=== PATIENT | female | born 1990 | race Caucasian/White ===

== ENCOUNTER 2017-02-07 10:29 | Inpatient (IN) | payer MEDICAID ==
[~2017-02-07] VITALS: Ht 167.6 cm; Wt 105.0 kg
[2017-02-07 10:37] VITALS: BP 135/80; PULSE 87; RESP 19; Ht 167.6 cm; Wt 105.0 kg
[2017-02-07] MEDS ORDERED: PREN1TAB79 PO (10:39)
--- NOTE | 2017-02-07 11:36 | TRIAGE ---
OB Triage Datetime Report Generated by CPN: 02/07/2017 11:35 Datetime: 02/07/2017 11:07 Maternal Assessment Level of Consciousness: Fully Conscious DTR's/Clonus: DTRs 1+ Headache: Denies Blurred Vision: No Respiratory Effort: Unlabored Breath Sounds, Left: Clear and Equal Breath Sounds, Right: Clear and Equal Nausea/Vomiting: Denies RUQ Epigastric Pain: Denies Facial Edema: None Labor Evaluation Frequency: X3 Monitor Mode: External Duration (sec)2399: 60-90 Quality: Mild Pattern: Normal: <= 5 Contractions in 10 Minutes Resting Tone [place]: Relaxed Heart Rate FHR Baseline Rate: 145 Monitor Mode: External US Variability: Moderate 6-25 bpm Accelerations: 15X15 Decelerations: None Category: Category I Vaginal Exam Membrane Status: Intact Datetime: 02/07/2017 10:36 Assessment Type: Triage Maternal Assessment Level of Consciousness: Fully Conscious DTR's/Clonus: DTRs 2+; No Clonus Headache: Denies Blurred Vision: No Respiratory Effort: Unlabored; Regular Rhythm; Equal Expansion Breath Sounds, Left: Clear and Equal Breath Sounds, Right: Clear and Equal Nausea/Vomiting: Denies RUQ Epigastric Pain: Denies Lower Extremities Edema: None Degree: None Upper Extremities Edema: None Degree: None Facial Edema: None Fall Risk Assessment History of Falling: (0) No Secondary Diagnosis: (0) No Ambulatory Aid: (0) Bedrest/Nurse Assist IV Therapy: (0) No Gait: (0) Normal/Bedrest/Immobile Mental Status: (0) Oriented to Own Ability Fall Score: 0 Fall Risk Score Definition: No Risk: No action required Datetime: 02/07/2017 10:34 Time of Arrival: 02/07/2017 11:11 EGA: 40.3 Arrived By: Ambulatory Datetime: 02/07/2017 10:25 Time of Arrival: 02/07/2017 10:25 Arrived By: Ambulatory Arrived From: Home Chief Complaint: REPEAT C/O UC'S SINCE YESTERDAY AND DFM Movement: Present Contractions: Regular Time Contractions Began: 02/06/2017 08:00 Contractions: 10 MIN Rupture of Membranes: Denies Vaginal Discharge: Denies Recent Sexual Intercouse: Denies Abdominal Trauma: Not Applicable Additional Patient Complaints: NONE Time Provider Notified: 02/07/2017 11:10 Provider Notified: DESIREE Initial Plan: MARGOTH
[2017-02-07] MEDS ORDERED: CEFAZOLIN 2 GM/50 ML (PMX) 50 ML IV SCH (13:00)
[2017-02-07] MEDS ORDERED: CARBOPROST 250 MCG INJ IM PRN (13:00)
[2017-02-07] MEDS ORDERED: MISOPROSTOL 200 MCG TAB PR PRN (13:00)
[2017-02-07] MEDS ORDERED: OXYTOCIN 30 UNITS/LR 500 ML IV SCH (13:00)
[2017-02-07] MEDS ORDERED: METHYLERGONOVINE 0.2 MG INJ IM PRN (13:00)
[2017-02-07] MEDS ORDERED: OXYTOCIN 30 UNITS/LR 500 ML IV PRN (13:00)
[2017-02-07] MEDS: LACTATED RINGER'S 1,000 ML IV SCH ×2 (13:01→19:01)
[2017-02-07 13:14] LABS: ADD SCAN DIFF NO
[2017-02-07 13:23] LABS: BASOPHILS % 0.3 % (0.0-2.0); EOSINOPHILS # 0.1 10^3/ul (0.0-0.5); EOSINOPHILS % 0.7 % (0.0-7.0); HEMATOCRIT 33.4 % (37.0-47.0); HEMOGLOBIN 11.6 g/dl (12.0-16.0); LYMPHOCYTES # 1.3 10^3/ul (0.8-2.9); LYMPHOCYTES % 12.4 % (15.0-51.0); MEAN CORPUSCULAR HEMOGLOBIN 29.7 pg (29.0-33.0); MEAN CORPUSCULAR HGB CONC 34.7 g/dl (32.0-37.0); MEAN CORPUSCULAR VOLUME 85.4 fl (82.0-101.0); MEAN PLATELET VOLUME 10.8 fl (7.4-10.4); MONOCYTE # 0.7 10^3/ul (0.3-0.9); MONOCYTES % 6.5 % (0.0-11.0); NEUTROPHIL # 8.3 10^3/ul (1.6-7.5); NEUTROPHILS % 79.4 % (39.0-77.0); PLATELET COUNT 196 10^3/UL (140-415); RED BLOOD COUNT 3.91 10^6/ul (4.20-5.40); RED CELL DISTRIBUTION WIDTH 14.1 % (11.5-14.5); WHITE BLOOD COUNT 10.5 10^3/ul (4.8-10.8)
[2017-02-07 13:29] LABS: INR 0.91; PROTIME 12.2 Sec (12.2-14.2)
[2017-02-07 13:30] LABS: PARTIAL THROMBOPLASTIN TIME 25.5 Sec (25.0-35.0)
[2017-02-07] MEDS ORDERED: LACTATED RINGER'S 1,000 ML IV ONE ×2 (13:30→16:52)
[2017-02-07] MEDS ORDERED: CITRIC ACID/NA CITRATE 30 ML CUP PO ONE (17:00)
[2017-02-07] MEDS ORDERED: METOCLOPRAMIDE 10 MG INJ IV ONE (17:00)
[2017-02-07] MEDS ORDERED: FAMOTIDINE 20 MG INJ IV ONE (17:00)
--- NOTE | 2017-02-07 20:56 | HP ---
Date/Time of Note Date/Time of Note DATE: 02/07/17 TIME: 20:48 OB - History Hx of Present Free Text/Dictation 25 Year-old with SIUP at 40 3/7 weeks and previous C/S presents with a chief complaint of ucsd. She has been receiving her care with [facility]/Dr. Moss. She states good movement. She denies nausea, vomiting , shortness of breath, chest pain, headache, visual changes, vaginal bleeding or LOF. Chief Complaint: ucs : 2 Para: 1 Spontaneous : 0 Therapeutic : 0 Care: None Ultrasounds: Normal mid trimester US Obstetrical Complications: None Medical Complications: None Past Family/Social History * Past Medical, Surgical, Family and Obstetric Histories reviewed from chart. Blood Type: O+ Rubella: immune RPR/VDRL: Negative GBS Status: Negative HBsAG: Negative OB Admission Exam Vital Signs Vital Signs Vital Signs Date Time Temp Pulse Resp B/P Pulse Ox O2 Delivery O2 Flow Rate FiO2 02/07/17 10:37 98.0 87 19 135/80 99 Physical Exam HEENT: WNL Lungs: Clear Abdomen: WNL Extremities: Normal Cervical Dilatation: 1cm Effacement: 50% Membranes: Intact Accelerations: Accelerations Present Decelerations: No Decelerations Varibility: Moderate Contractions on Admission: 6-10 Minutes Apart Intensity: Moderate Last 72 hours Lab Results CBC & BMP 02/07/17 12:45 OB Assessment/Plan Other plan: 25 Year-old with SIUP at 40 3/7 weeks and previous C/S in early labor. - FHR: No sign of metabolic acidosis- Category I - Continious EFM, toco - CBC, blood type and screen - Analgesia options with R/B/A discussed in detail with patient - Please see the orders - O+/Rubella: Immune/GBS negative The risk of delivery including but not limited to bleeding, infection, injury to other organs (bowel, bladder, ureter, vessels, and nerves), injury to fetus, blood transfusion, blood transfusion related infection, risk of anesthesia, adhesion, needs for future , removal of uterus or any other indicated surgery was discussed with the patient and her family. She expressed understanding. All of her questions were answered. She will be signed the informed consent Admission, procedures, expectations, risks and possible complications have been discussed in detail with the patient. Risk of vaginal delivery including but not limited to bleeding, infection, cervical laceration, placental retention, injury to fetus, blood transfusion, blood transfusion related infection, risk of anesthesia, adhesion, cervical laceration, episiotomy/laceration, possible delivery with risk of bleeding, infection, injury to other organs ( bowel, bladder, ureter, vessels, nerves), injury to fetus, blood transfusion, blood transfusion related infection, risk of anesthesia, scar and hernia formation, needs for future , removal of uterus or any other indicated surgery discussed with the patient. She expressed understanding and repeat the risks. All of her questions were answered, all appropriate consents will be signed. PHYSICIAN'S VERIFICATION OF INFORMED CONSENT- The patient was counseled regarding the procedure, its indications, risks, potential complications and alternatives and any questions were answered. Consent was obtained. PLANNED PROCEDURE/TREATMENT: delivery with possible vacuum/forceps delivery PHYSICIAN'S VERIFICATION OF INFORMED CONSENT FOR BLOOD TRANSFUSION There is a reasonable possibility that blood transfusion will be necessary as a result of the patient's procedure. I have discussed the following with the patient/patient's legal field representative/health education: An explanation of the benefits and risks of the transfusion of blood or blood products and the possible alternatives. Al questions have been answered to the patient's/patients legal representatives satisfaction. INFORMED CONSENT: The patient has been informed of: - The nature of the proposed care, treatment, services, medications, interventions or procedures. - Potential benefits, risks or side effects, including potential problems related to recuperation. - The likelihood of achieving care treatment and service goals. - Reasonable alternatives to the proposed care, treatment and service. - The relevant risks, benefits and side effects related to alternatives, including the possible results of not receiving care, treatment and services. - When indicated, any limitations on the confidentiality of information learned from or about the patient. - If appropriate, the risks, benefits and alternatives of the drugs to be used for sedation/analgesia including moderate sedation. - If appropriate, patient has been provided information on the risks, benefits and alternatives to the transfusion of blood and/or blood products. - If appropriate, patient has been provided information regarding the [employer] [place] Blood Act. MOIRA ARITA Feb 07, 2017 20:56
[2017-02-07] MEDS ORDERED: morphine SULFATE/PF (10 MG/10 ML) INJ ONE (21:04)
[2017-02-07] MEDS ORDERED: FENTAnyl 50 MCG/ML VIAL ONE (21:04)
[2017-02-07] MEDS ORDERED: OXYTOCIN 30 UNITS/LR 500 ML IV ONE ×2 (21:04→21:43)
[2017-02-07] MEDS ORDERED: PHENYLephrine (100 MCG/ML) 5ML SYG ONE (21:18)
[2017-02-07] MEDS ORDERED: ONDANSETRON 4 MG INJ ONE (21:41)
[2017-02-07] MEDS ORDERED: FENTAnyl 50 MCG/ML VIAL IV PRN (22:00)
[2017-02-07] MEDS ORDERED: HYDROmorphONE (0.2 MG/ML) 10ML SYG IV PRN (22:00)
[2017-02-07] MEDS ORDERED: ONDANSETRON 4 MG INJ IV PRN (22:00)
[2017-02-07] MEDS ORDERED: DIPHENHYDRAMINE 50 MG INJ IV PRN (22:00)
[2017-02-07] MEDS ORDERED: PROCHLORPERAZINE 10 MG INJ IV PRN (22:00)
[2017-02-07] MEDS ORDERED: KETOROLAC 30 MG INJ IV PRN (22:00)
[2017-02-07] MEDS ORDERED: MEPERIDINE 25 MG INJ IV PRN (22:00)
--- NOTE | 2017-02-07 22:48 | OPR ---
Operative Report Planned Procedure Free Text/Dictation 27 year-old, [id number], with single intrauterine at 40 weeks and 3 days, with previous delivery in labor Procedure date Feb 07, 2017 Procedure(s) Repeat delivery Performed by: MOIRA ARITA Assisting provider: ZION RAMSEY MD Pre-procedure diagnosis single intrauterine at 40 weeks and 3 days, with previous delivery in labor Anesthesia Type: spinal Procedure Description The patient is a 27 year-old, [id number], with single intrauterine at 40 weeks and 3 days, with previous delivery in labor. The risks of delivery including but not limited to bleeding, infection , injury to other organs (bowel, bladder, ureters, vessels, nerves), injury to the , blood transfusion, blood transfusion related infections, removal of uterus, risk of anesthesia, risks with future , repeat , adhesion/hernia formation discussed in detail with the patient. She voiced understanding and agreed with . She signed the informed consent. DESCRIPTION OF OPERATION: The patient was taken to the operating room, where she was identified and the procedure was verified. She received spinal anesthesia. The patient was placed in dorsal supine position with the left tilt. The heart rate was 138 per minute. The patient was then prepped and draped in the normal sterile fashion. The Pfannenstiel skin incision was made, and carried down to the fascia with the knif. The fascia was incised in the midline, and the fascial incision was carried laterally with the Garcia scissors. The superior portion of the fascial incision was then grasped with Drea clamps, tented up and dissected off the underlying rectus muscle with sharp dissection. The lower portion of the fascial incision was then made in a similar fashion. The rectus muscle was and the peritoneum was entered. The peritoneal incision was then stretched and a bladder blade was inserted. Then, an incision was made in the lower uterine segment in a transverse fashion with the knife and extended bluntly. The was delivered atraumatically in cephalic presentation, with the above findings. The resuscitation team was present and the baby was handed to them. A cord blood sample was obtained for further evaluation. The placenta and membranes, which appeared normal were removed. The uterus was exteriorized and cleared of all clots and debris. The uterus was then closed in a two layer fashion with 0 Vicryl. At the time of closure, hemostasis was noted. The gutters were irrigated. The peritoneum was reapproximated with 3-0 Vicryl. The muscle was reapproximated with 3-0 Vicryl. The fascia approximated with 0 Vicryl in a running fashion. The subcutaneous closed in two layer with 3/0 vicryl. The skin was closed with 4-0 Monocryl. All instrument, sponge, lap, and needle counts were correct x3. The patient tolerated the procedure well. She was transferred to the recovery room in stable condition. The patient received 2 g Ancef 30 minutes prior to surgery. Post-Procedure Post-procedure diagnosis single intrauterine at 40 weeks and 3 days, with previous delivery in labor Findings: Live Baby [female], Apgars [8] and [9], weight [9 lbs 14 oz-4475 gram], [ cephalic] presentation [3]cord.Time od delivery: 21:31 Specimen removed: No Complications: None Pt Condition post procedure: stable Disposition: other (Recovery) Physician Certification I, the undersigned physician, hereby certify that I have discussed the procedure described in this consent form with this patient (or the patient's legal field sales representative), including: * The risk and benefits of the procedure; * Any adverse reactions that may reasonably be expected to occur; * Any alternative efficacious methods of treatment which may be medically viable ; * The potential problems that may occur during recuperation; * Potential for blood transfusion and associated risks/benefits; and * Any research or economic interest I may have regarding this treatment. I further certify that the patient/legally responsible person was encouraged to ask question and that all questions were answered. MOIRA ARITA Feb 07, 2017 22:48
[2017-02-08] MEDS ORDERED: KETOROLAC 30 MG INJ IV PRN (00:30)
[2017-02-08] MEDS ORDERED: PROCHLORPERAZINE 10 MG INJ IV PRN (00:30)
[2017-02-08] MEDS ORDERED: HYDROmorphONE 1 MG/ML SYG IV PRN ×2 (00:30)
[2017-02-08] MEDS ORDERED: ONDANSETRON 4 MG INJ IV PRN (00:30)
[2017-02-08] MEDS ORDERED: NALOXONE (0.4 MG/ML) INJ IV PRN (00:30)
[2017-02-08] MEDS ORDERED: ZOLPIDEM 5 MG TAB PO PRN (00:30)
[2017-02-08] MEDS ORDERED: DIPHENHYDRAMINE 50 MG INJ IV PRN (00:30)
[2017-02-08] MEDS ORDERED: DEXTROSE 5%-LR 1,000 ML IV SCH (01:52)
[2017-02-08] MEDS ORDERED: METHYLERGONOVINE 0.2 MG INJ IM PRN (02:00)
[2017-02-08] MEDS: OXYCODONE/ACETAMINOPHEN (5/325) TAB PO SCH ×3 (02:00→18:00)
[2017-02-08] MEDS ORDERED: LANOLIN 7 GM TUBE TOP PRN (02:00)
[2017-02-08] MEDS ORDERED: CARBOPROST 250 MCG INJ IM PRN (02:00)
[2017-02-08] MEDS ORDERED: METHYLERGONOVINE 0.2 MG TAB PO PRN (02:00)
[2017-02-08] MEDS ORDERED: OXYTOCIN 30 UNITS/LR 500 ML IV PRN (02:00)
[2017-02-08] MEDS ORDERED: MISOPROSTOL 200 MCG TAB PR PRN (02:00)
[2017-02-08] MEDS ORDERED: OXYCODONE/ACETAMINOPHEN (5/325) TAB PO PRN (02:00)
[2017-02-08 02:25] VITALS: BP 132/74; PULSE 74; RESP 18
[2017-02-08 04:15] VITALS: BP 115/69; PULSE 77; RESP 18
[2017-02-08] MEDS: OXYTOCIN 30 UNITS/LR 500 ML IV SCH ×2 (05:29→21:00)
[2017-02-08] MEDS: IBUPROFEN 800 MG TAB PO SCH ×3 (06:00→22:00)
[2017-02-08 07:50] VITALS: BP 107/60; PULSE 78; RESP 18
[2017-02-08] MEDS: SENNA/DOCUSATE NA (8.6MG/50MG) TAB PO SCH ×2 (08:43→21:10)
[2017-02-08 08:50] LABS: ADD SCAN DIFF NO
[2017-02-08 09:00] LABS: BASOPHILS % 0.3 % (0.0-2.0); EOSINOPHILS % 0.4 % (0.0-7.0); HEMATOCRIT 31.2 % (37.0-47.0); HEMOGLOBIN 10.6 g/dl (12.0-16.0); LYMPHOCYTES # 1.5 10^3/ul (0.8-2.9); LYMPHOCYTES % 12.9 % (15.0-51.0); MEAN CORPUSCULAR HEMOGLOBIN 29.3 pg (29.0-33.0); MEAN CORPUSCULAR VOLUME 86.2 fl (82.0-101.0); MONOCYTE # 0.7 10^3/ul (0.3-0.9); MONOCYTES % 6.6 % (0.0-11.0); NEUTROPHIL # 8.9 10^3/ul (1.6-7.5); NEUTROPHILS % 79.2 % (39.0-77.0); PLATELET COUNT 153 10^3/UL (140-415); RED BLOOD COUNT 3.62 10^6/ul (4.20-5.40); WHITE BLOOD COUNT 11.2 10^3/ul (4.8-10.8)
[2017-02-08] MEDS: LACTATED RINGER'S 1,000 ML IV SCH ×3 (10:28→20:55)
[2017-02-08 12:00] VITALS: BP 112/58; PULSE 87; RESP 18
[2017-02-08 15:17] VITALS: BP 114/66; PULSE 95; RESP 18
--- NOTE | 2017-02-08 17:30 | PN ---
Date/Time of Note Date/Time of Note DATE: 02/08/17 TIME: 17:29 OB Subjective Subjective Subjective Post day 1 Afebrile, vital signs stable, abdomen soft slightly distended bowel sounds present uterus firm lochia moderate extremity normal ambulation recommended Laboratory Tests Test 02/08/17 08:05 White Blood Count 11.210^3/ul Red Blood Count 3.6210^6/ul Hemoglobin 10.6g/dl Hematocrit 31.2% Mean Corpuscular Volume 86.2fl Mean Corpuscular Hemoglobin 29.3pg Mean Corpuscular Hemoglobin Concent 34.0g/dl Red Cell Distribution Width 14.0% Platelet Count 25492^3/UL Mean Platelet Volume 11.0fl Neutrophils % 79.2% Lymphocytes % 12.9% Monocytes % 6.6% Eosinophils % 0.4% Basophils % 0.3% Nucleated Red Blood Cells % 0.0/100WBC Neutrophils # 8.910^3/ul Lymphocytes # 1.510^3/ul Monocytes # 0.710^3/ul Eosinophils # 0.010^3/ul Basophils # 0.010^3/ul Nucleated Red Blood Cells # 0.010^3/ul Current Medications Medications (Trade) Dose Ordered Sig/Morgan Route PRN Reason Start Time Stop Time Status Last Admin Dose Admin Lactated Ringer's 1,000 ml @ 125 mls/hr Q8H IV 02/07/17 12:55 02/08/17 10:28 Cefazolin Sodium/ Dextrose 50 ml @ 100 mls/hr ONCE IV 02/07/17 13:00 02/08/17 02:39 DC Oxytocin/Lactated Ringer's 500 ml @ 125 mls/hr ONCE IV 02/07/17 13:00 02/08/17 02:39 DC 02/08/17 01:40 Oxytocin/Lactated Ringer's 500 ml @ 0 mls/hr ONCE PRN IV For Hemorrhage Management 02/07/17 13:00 02/08/17 02:39 DC Methylergonovine Maleate (Methergine) 0.2 mg ONCE PRN IM VAGINAL BLEEDING 02/07/17 13:00 02/08/17 02:39 DC Carboprost Tromethamine (Hemabate) 250 mcg ONCE PRN IM VAGINAL BLEEDING 02/07/17 13:00 02/08/17 02:39 DC Misoprostol 1000 mcg 1,000 mcg ONCE PRN NM VAGINAL BLEEDING 02/07/17 13:00 02/08/17 02:39 DC Lactated Ringer's 1,000 ml @ 1,000 mls/hr Q1H ONCE IV 02/07/17 13:30 02/07/17 14:29 DC 02/07/17 16:28 Lactated Ringer's (Lr) 1,000 ml @ 1,000 mls/hr Q1H ONCE IV 02/07/17 16:52 02/07/17 17:51 DC 02/07/17 16:52 Citric Acid/ Sodium Citrate (Bicitra) 30 ml pre-procedure ONCE PO 02/07/17 17:00 02/07/17 17:01 DC Famotidine (Pepcid Iv) 20 mg pre-procedure ONCE IV 02/07/17 17:00 02/07/17 17:01 DC Metoclopramide HCl 10 mg 10 mg ONCE ONCE IV 02/07/17 17:00 02/07/17 17:01 DC Oxytocin/Lactated Ringer's 500 ml @ ud STK-MED ONCE IV 02/07/17 21:04 02/07/17 21:05 DC Fentanyl (Sublimaze) 100 mcg STK-MED ONCE .ROUTE 02/07/17 21:04 02/07/17 21:05 DC Morphine Sulfate (Duramorph) 10 mg STK-MED ONCE .ROUTE 02/07/17 21:04 02/07/17 21:05 DC Phenylephrine HCl (Diego-Synephrine Inj Syg) 500 mcg STK-MED ONCE .ROUTE 02/07/17 21:18 02/07/17 21:19 DC Hydromorphone HCl (Dilaudid (Rec)) 0.4 mg PACU ORDER PRN IV PAIN 02/07/17 22:00 02/08/17 02:39 DC Fentanyl (Sublimaze) 25 mcg PACU ORDER PRN IV PAIN 02/07/17 22:00 02/08/17 02:39 DC Ketorolac Tromethamine (Toradol) 30 mg PACU ORDER PRN IV PAIN 02/07/17 22:00 02/08/17 02:39 DC Ondansetron HCl (Zofran Inj) 4 mg PACU ORDER PRN IV NAUSEA AND/OR VOMITING 02/07/17 22:00 02/08/17 02:39 DC Prochlorperazine (Compazine Inj) 5 mg PACU ORDER PRN IV NAUSEA AND/OR VOMITING 02/07/17 22:00 02/08/17 02:39 DC Meperidine HCl (Demerol) 25 mg PACU ORDER PRN IV POST-OP RIGORS 02/07/17 22:00 02/08/17 02:40 DC Diphenhydramine HCl (Benadryl) 25 mg PACU ORDER PRN IV PRURITUS 02/07/17 22:00 02/08/17 02:40 DC Ondansetron HCl 4 mg 4 mg STK-MED ONCE .ROUTE 02/07/17 21:41 02/07/17 21:42 DC Oxytocin/Lactated Ringer's 500 ml @ ud STK-MED ONCE IV 02/07/17 21:43 02/07/17 21:44 DC Naloxone HCl (Narcan) 0.1 mg Q2M PRN IV FOR RESP RATE 8 OR LESS 02/08/17 00:30 02/08/17 02:39 DC Ketorolac Tromethamine (Toradol) 30 mg Q6H PRN IV PAIN 02/08/17 00:30 02/09/17 00:29 Hydromorphone HCl (Dilaudid) 0.2 mg Q3H PRN IV PAIN LEVEL 1-5 02/08/17 00:30 02/09/17 00:29 Hydromorphone HCl (Dilaudid) 0.4 mg Q3H PRN IV PAIN LEVEL 6-10 02/08/17 00:30 02/09/17 00:29 Diphenhydramine HCl (Benadryl) 25 mg Q6H PRN IV ITCHING 02/08/17 00:30 02/09/17 00:29 Ondansetron HCl (Zofran Inj) 4 mg Q6H PRN IV NAUSEA AND/OR VOMITING 02/08/17 00:30 02/09/17 00:29 Prochlorperazine (Compazine Inj) 10 mg ONCE PRN IV NAUSEA AND/OR VOMITING 02/08/17 00:30 02/09/17 00:29 Zolpidem Tartrate (Ambien) 5 mg HS MAY REPEAT X 1 PRN PO INSOMNIA 02/08/17 00:30 02/09/17 00:29 Miscellaneous Information Duramorph: 0.2 mg Spi... GIVEN XX 02/08/17 00:30 02/08/17 02:39 DC Dextrose/Lactated Ringer's 1,000 ml @ 125 mls/hr Q8H IV 02/08/17 01:52 02/08/17 02:39 DC Oxytocin/Lactated Ringer's 500 ml @ 125 mls/hr Q4H IV 02/08/17 01:52 02/08/17 09:51 DC 02/08/17 05:29 Methylergonovine Maleate (Methergine) 0.2 mg Q6H PRN PO VAGINAL BLEEDING 02/08/17 02:00 02/08/17 02:40 DC Simethicone (Mylicon) 160 mg Q8H PRN PO DISTENSION/GAS/BLOATING 02/08/17 02:00 Senna/Docusate Sodium (Senokot-S) 1 tab BID PO 02/08/17 09:00 02/08/17 08:43 Lanolin (Ren-W-Sbftak) 1 applic BEDSIDE MEDICATION PRN TOP BEDSIDE FOR KATHIE TO NIPPLES 02/08/17 02:00 Diphtheria/ Tetanus/Acell Pertussis (Adacel) 0.5 ml ONCE ONCE IM* 02/11/17 09:00 02/11/17 09:01 Measles/Mumps/ Rubella Vaccine Live 0.5 ml 0.5 ml ONCE ONCE SC* 02/11/17 09:00 02/11/17 09:01 Oxytocin/Lactated Ringer's 500 ml @ 0 mls/hr ONCE PRN IV For Hemorrhage Management 02/08/17 02:00 Methylergonovine Maleate (Methergine) 0.2 mg ONCE PRN IM VAGINAL BLEEDING 02/08/17 02:00 Carboprost Tromethamine (Hemabate) 250 mcg ONCE PRN IM VAGINAL BLEEDING 02/08/17 02:00 Misoprostol (Cytotec) 1,000 mcg ONCE PRN NM VAGINAL BLEEDING 02/08/17 02:00 Ibuprofen (Motrin) 800 mg Q8 PO 02/08/17 06:00 Oxycodone/ Acetaminophen (Percocet (5/ 325)) 1 tab Q8H PO 02/08/17 02:00 Oxycodone/ Acetaminophen (Percocet (5/ 325)) 1 tab Q4H PRN PO PAIN 02/08/17 02:00 VIKRAM RAMÍREZ MD Feb 08, 2017 17:30
[2017-02-08 21:00] VITALS: BP 111/66; PULSE 97; RESP 18
[2017-02-09] MEDS: OXYCODONE/ACETAMINOPHEN (5/325) TAB PO SCH ×3 (02:00→18:00)
[2017-02-09 05:00] VITALS: BP 125/58; PULSE 85; RESP 20
[2017-02-09] MEDS: IBUPROFEN 800 MG TAB PO SCH ×3 (06:00→22:00)
[2017-02-09 08:00] VITALS: BP 138/80; PULSE 91; RESP 17
[2017-02-09] MEDS: SENNA/DOCUSATE NA (8.6MG/50MG) TAB PO SCH ×2 (09:29→21:00)
[2017-02-09 10:13] LABS: ADD SCAN DIFF NO
[2017-02-09 10:19] LABS: BASOPHILS % 0.2 % (0.0-2.0); EOSINOPHILS # 0.1 10^3/ul (0.0-0.5); EOSINOPHILS % 0.8 % (0.0-7.0); HEMATOCRIT 30.3 % (37.0-47.0); HEMOGLOBIN 10.1 g/dl (12.0-16.0); LYMPHOCYTES % 11.1 % (15.0-51.0); MEAN CORPUSCULAR HEMOGLOBIN 29.3 pg (29.0-33.0); MEAN CORPUSCULAR HGB CONC 33.3 g/dl (32.0-37.0); MEAN CORPUSCULAR VOLUME 87.8 fl (82.0-101.0); MEAN PLATELET VOLUME 10.7 fl (7.4-10.4); MONOCYTE # 0.5 10^3/ul (0.3-0.9); MONOCYTES % 5.2 % (0.0-11.0); NEUTROPHIL # 7.6 10^3/ul (1.6-7.5); NEUTROPHILS % 82.2 % (39.0-77.0); PLATELET COUNT 159 10^3/UL (140-415); RED BLOOD COUNT 3.45 10^6/ul (4.20-5.40); RED CELL DISTRIBUTION WIDTH 14.2 % (11.5-14.5); WHITE BLOOD COUNT 9.3 10^3/ul (4.8-10.8)
[2017-02-09] MEDS ORDERED: NA PHOSPHATE/BIPHOS 133 ML ENEMA PR ONE (10:30)
[2017-02-09 16:00] VITALS: BP 106/59; PULSE 80; RESP 18
[2017-02-09 20:00] VITALS: BP 133/90; PULSE 95; RESP 19
[2017-02-10] MEDS: OXYCODONE/ACETAMINOPHEN (5/325) TAB PO SCH ×2 (02:26→10:22)
[2017-02-10 04:30] VITALS: BP 119/72; PULSE 79; RESP 18
[2017-02-10] MEDS: IBUPROFEN 800 MG TAB PO SCH (05:48)
[2017-02-10 08:10] VITALS: BP 130/75; PULSE 81; RESP 19
[2017-02-10] MEDS: SENNA/DOCUSATE NA (8.6MG/50MG) TAB PO SCH (10:21)
--- NOTE | 2017-02-10 13:02 | DS ---
Date/Time of Note Date/Time of Note DATE: 02/10/17 TIME: 13:00 Discharge Summary Admission/Discharge Info Admit Date/Time Feb 07, 2017 at 11:56 Discharge Date/Time February 10, 2017 1300 Final Diagnosis Post date 3 Patient Condition: Good Procedures Repeat Hx of Present Illness Term history of previous Hospital Course Satisfactory Home Meds Reported Medications Vit W-Ca,Fe,FA(<1 mg) ( Vitamins) 1 Each Tablet, 1 EACH PO, TAB 02/07/17 Follow-up Plan Appointment clinic in 1 week for post follow-up VIKRAM RAMÍREZ MD Feb 10, 2017 13:02
--- NOTE | 2017-02-10 13:04 | PD.PPDC ---
COAL SHOVELER Discharge Instruction Condition Patient Condition: Good Diet Diet: Resume Regular Diet Activity/Restrictions Activity: Normal Activity May Shower Wound/Drain Care Instructions Wound/Drain Care Instructions: Remove Steri Strips in 1 week Follow-up Follow-up with Physician: 4, Day/Days Provider Information: Advised to make appointment with the clinic in 4-5 days to discontinue fabiana Return to clinic for SURGICAL NURSE PRACTITIONER Instructions: Fever greater than 101 Worsening abdominal pain Excessive Vaginal Bleeding More than 2 pads per hour Unable to tolerate diet OB Instructions: Breast Tenderness Blurried Vision Headache Surgical Instructions: Incisional Drainage Incisional Redness VIKRAM RAMÍREZ MD Feb 10, 2017 13:04
[2017-02-11] MEDS ORDERED: MEASLES,MUMPS,RUBELLA VACCINE INJ SC* ONE (09:00)
[2017-02-11] MEDS ORDERED: DIPHTH/TET/ACEL PERTUSS (ADULT) 0.5 ML VIAL IM* ONE (09:00)
== END 2017-02-10 14:53 | disposition home or self-care (01) | DRG 766 ==
LOC: OBT 10:29 → L-D 10:30 → OBT 11:55 → L-D 11:56 → PP1 02-08 02:34
PROVIDERS: ADMIT Obstetrics & Gynecology; ATTEND Obstetrics & Gynecology
PROC: 10D00Z1 Extraction of Products of Conception, Low, Open Approach (ICD-10-PCS; principal; 2017-02-07 16:00)
DX: O99.214 Obesity complicating childbirth (principal); O48.0 Post-term pregnancy; Z3A.40 40 weeks gestation of pregnancy; Z37.0 Single live birth
CPT/HCPCS: 85025; 85610; 85730; 86592; 86850; 86900; 86901; 87340; 94760; 99464; G0463; J0690; J1885; J2274; J2370; J2405; J2590; J3010; J7120; J7121